=== PATIENT | female | born 1990 | race Caucasian/White ===

== ENCOUNTER 2017-01-15 08:00 | Inpatient (IN) ==
[2017-01-15] MEDS ORDERED: Metoclopramide 10 MG/2 ML VIAL IVP PRN (08:35)
[2017-01-15] MEDS ORDERED: Ondansetron 4 MG/2 ML VIAL IVP PRN ×2 (08:35→16:51)
[2017-01-15] MEDS ORDERED: Naloxone 0.4 MG/ML INJ IVP PRN (08:35)
[2017-01-15] MEDS ORDERED: Famotidine 20 MG/2 ML VIAL IVP PRN (08:35)
[2017-01-15 08:51] LABS: Basophils % 0.4 %; Eosinophils # 0.1 K/mcL (0.0-0.6); Hematocrit 37.7 % (35.3-44.9); Hemoglobin 13.2 g/dL (11.5-15.4); Immature Platelets 2.8 % (1.1-6.1); Lymphocytes % 25.7 %; Mean Corpuscular Hemoglobin 30.3 pg (28.0-33.3); Mean Corpuscular Volume 86.7 fL (83.0-100.0); Mean Platelet Volume 9.4 fL (9.4-12.4); Monocytes # 0.7 K/mcL (0.0-1.3); Monocytes % 8.6 %; Neutrophils # 4.9 K/mcL (1.6-8.9); Platelet Count 284 K/mcL (140-400); Red Blood Count 4.35 M/mcL (3.82-4.97); Red Cell Distribution Width 12.8 % (11.5-14.5); Segmented Neutrophils % 63.3 %
[2017-01-15] MEDS ORDERED: Oxytocin 20 units/ LR 1000 mL 20 UNIT/1,000 ML BAG IVC SCH ×2 (09:00→18:37)
[2017-01-15] MEDS: Ringers Solution, Lactated 1,000 ML IVC SCH ×2 (09:05→15:33)
--- NOTE | 2017-01-15 11:04 | Anesthesia Evaluation PreOp ---
Date of Encounter: 01/15/17 Time of Encounter: 10:50 - Past History Planned Operation: BRIAN Cardiac History: Denies any Significant Hx Pulmonary History: Denies Any Significant HX ABSTRACTER History: Denies Any Significant HX Other Medical History: Denies Any Significant HX Anesthesia History: No Prior Anesthetic Complications (Left retinal detachment repair), Past Anesthesia : Yes Alcohol Use: none Drug use: none - Meds/Allergy Pre-op Review Medications Reviewed: Yes Allergies Reviewed: Yes (PCN) Beta Blockers on Current Med List: No Anesthesia Results - Labs 01/15/17 08:35 Anesthesia Exam BP 122/83 P 80 R 18 T98.7 Height: 5'6" Weight: 75kg NPO (# of Hours): 3hrs solids, water 1hr Pain Scale: 2 Pain Scale Used: Numeric (1 - 10) - HEENT Pupil (Motor): Pupils equal Mallampati: I Teeth: Normal Oral Opening: Greater than 3 - ABSTRACTER ABSTRACTER Motor: Normal RUE, Normal LUE, Normal RLE, Normal LLE, Normal Face ABSTRACTER Sensory: Normal: RUE, LUE, RLE, LLE, Face - Cardiac Rhythm: Regular Murmur: None JVD: No Carotid Bruit: No - Pulmonary Breath Sounds: bilateral Clear Respiratory Effort: Symmetrical Anesthesia Assess/Plan ASA Score: 2 Modified [place] Scale for Level of Consciousness: Cooperative, oriented, and tranquil Anesthetic Plan: Regional Autologous Blood: No Monitoring Plan: Standard Monitors Recovery Plan: Other
--- NOTE | 2017-01-15 12:33 | OB/GYN History & Physical ---
Date of Encounter: 01/15/17 Time of Encounter: 12:31 Assessment and Plan (1) Postmaturity , 40-42 weeks gestation Current visit: Yes Status: Acute Induction of labor with pitocin. Informed consent obtained in the office. (2) History of hemorrhage, currently in third trimester Current visit: Yes Status: Acute Uterotonics will be at bedside at time of delivery. History of Present Illness Chief complaint: Induction of labor post dates HPI: Ms. De Souza is a 26 year old female G2 P 1-0-0-1 at 40 4/7 weeks presents for induction of labor post dates. She denies any regular contractions, vaginal bleeding, or leaking fluid. She reports good movement. Her has been uncomplicated. Past Med Surg Social Fam HX - Past Medical History Source: patient Medical history: no medical history Psychiatric history: no psych history - Past Surgical History Surgical History: no surgical history (eye surgery) - Social History Smoking Status: Never smoker Smokeless Tobacco Status: No Alcohol use: none Drug use: none Obstetrical History - Pregnancies : 2 Para: 1 Term: 1 Livin Medications and Allergies Pnv95/Ferrous Fumarate/FA [ Vitamin Tablet] 1 each PO 01/15/17 [History] Review of System OB All systems PM: reviewed and no additional remarkable complaints except as stated Exam - Constitutional Constitutional: well developed, well nourished, no acute distress, average body habitus - HEENT HEENT: EOMI - Lungs Respiratory exam: CTAB - Cardiovascular Cardiovascular exam: RRR - Abdomen Abdomen: Present: bowel sounds normal, gravid, non tender - Vagina Vagina: Present: normal moisture - Cervix Dilation: 3 Effacement: 80 Station: -2 Results Result Diagrams: 01/15/17 08:35 All other labs normal. - VTE Reasons for not Prescribing Prophylaxis: Treatment not Indicated - Low risk for VTE
--- NOTE | 2017-01-15 14:00 | OB Labor Progress Note ---
Date of Encounter: 01/15/17 Time of Encounter: 13:58 Labor Progress Note - Subjective Subjective: Patient in bed. Contractions are well tolerated by patient - Vital Signs Vital Signs: VSS - Cervix Cervix: 3/80/-2 midposition soft - Heart Tones Heart Tones: 120 with moderate variability 15 x15 accels and no decels - [place]: Contractions every 2-3 minutes 45-60 seconds in length - Interventions Interventions: AROM for small amount of clear fluid. Patient and fetus tolerated well. - Plan Plan: Continue routine labor management Patient may have nubain if requested Patient may have epidural if requested Patient is GBS negative Consider internal monitors if no change in cervical dilation in next 4 hours Anticipate vaginal delivery POC per consult with Dr López.
[2017-01-15] MEDS ORDERED: Bupivacaine-MPF 0.25% 10 ML VIAL ONE (15:39)
[2017-01-15] MEDS ORDERED: *HR* FentaNYL (PF) 100 MCG/2 ML VIAL ONE (15:39)
[2017-01-15] MEDS ORDERED: Epidural Premix (fent/bupiv) 110 ML EP ONE (15:40)
[2017-01-15] MEDS ORDERED: Bupivacaine-MPF 0.25% 10 ML VIAL EP ONE (16:51)
[2017-01-15] MEDS ORDERED: *HR* FentaNYL (PF) 100 MCG/2 ML VIAL EP ONE (16:51)
[2017-01-15] MEDS ORDERED: EPHEDrine 50 MG/ML VIAL IVP PRN (16:51)
--- NOTE | 2017-01-15 16:57 | Anesthesia Procedures ---
Date of Encounter: 01/15/17 Time of Encounter: 15:43 Procedures: Anesthesia - Epidural/Spinal Patient ID/Chart reviewed: Yes Patient examined: Yes OB Eval: Gestational age: 39 OB Eval: : 1 OB Eval: Hx Para: 0 OB Eval: Dilated at (cm): 4 OB Eval: Contractions: Non-stressed pattern Consent Obtained: Yes Supplemental Oxygen: None/Room Air Site Prep: Aseptic Technique, Sterile prep and drape, Povidone-Iodine 1% Patient position: upright Local Anesthetic: Lidocaine 1% Amount of Local Anesthetic used: 3 Touhy Needle Gauge: 18 Touhy Needle Depth (cm): 5 Catheter Depth at Skin (cm): 13 Test Dose (1.5% Lido + Epi): Volume given (mls): 3 Test Dose Result: Negative Loading Dose: 0.25% Marcaine (mls): 8 Loading Dose: Fentanyl (mcg): 100 Loading Dose Administered: Thru Catheter Infusion Med: 0.125% Bupivacaine w/ 2 mcg/ml Fentanyl Catheter Secured in Place: Tegaderm, Tape Interspace Used: L4-L5 Loss of Resistance (BLAIR): Yes Blood: No CSF: No Paresthesia: No Procedure: BRIAN placed in upright position 1st pass without any immediate noted complications. VSS and FHT stable throughout. Vitals + FHT's: 1543 BP 130/78 P 65 R 18 1608 BP 126/74 R 16 P 97 FHT 150s
[2017-01-15] MEDS ORDERED: Epidural Premix (fent/bupiv) 110 ML EP SCH (17:00)
[2017-01-15] MEDS ORDERED: miSOPROStol 100 MCG TABLET RC STA (18:20)
--- NOTE | 2017-01-15 18:26 | OB/GYN Procedure Note ---
Delivery - Delivery Date: 01/15/17 Provider: Suzy López Intrapartum events: none Delivery induction: oxytocin Delivery augmentation: rupture of membranes Delivery monitor: external FHT, external uterine Anesthesia: epidural Estimated Blood Loss: 400 - Infant (s) A Delivery Date: 01/15/17 Infant Delivery Time: 17:43 Presentation: vertex Position: BALA Route of delivery: Gender: Female Viability: Viable at 1 minute: 8 at 5 mins: 9 Shoulder Dystocia: not encountered Specimens collected: cord blood Placenta: spontaneous Cord: 3 umbilical vessels - Repair Episiotomy: none Laceration Description: Perineal - 1st Degree - Complications Delivery complications: none Delivery comments: Called to room with patient complete and +2 station. Under maternal effort she delivered a viable female weighing pending and Apgars 8 and 9 at one and 5 minutes respectively over a first-degree perineal laceration. Following delivery of the head the infant was bulb suctioned. There was no nuchal cord or shoulder dystocia encountered. The was placed on mom's abdomen. Cord was allowed to cease pulsations prior to clamping and cutting. Cord blood was collected. First-degree perineal laceration was repaired using 0 Vicryl in standard fashion. Placenta delivered spontaneously, complete, and intact with a three-vessel cord. Mother and infant are recovering in the LDR in stable condition. Following delivery she began having uterine atony. With her history of prior hemorrhage 1000 mcg misoprostol was placed rectally. EBL with delivery and 400 ml. - Disposition Mom disposition: stable in LDR disposition: stable in LDR
[2017-01-15] MEDS ORDERED: Oxytocin 20 units/ LR 1000 mL 20 UNIT/1,000 ML BAG IVC ONE (18:37)
[2017-01-15] MEDS ORDERED: Acetaminophen 325 MG TABLET PO PRN (18:37)
[2017-01-15] MEDS: Ibuprofen 600 MG TABLET PO PRN (21:00)
[2017-01-16] MEDS: Ibuprofen 600 MG TABLET PO PRN ×2 (03:58→13:13)
[2017-01-16 04:07] LABS: Basophils % 0.3 %; Eosinophils # 0.1 K/mcL (0.0-0.6); Eosinophils % 0.8 %; Hematocrit 33.7 % (35.3-44.9); Immature Granulocytes % 0.7 % (0-4); Lymphocytes # 2.3 K/mcL (0.6-4.6); Lymphocytes % 19.8 %; Mean Corpuscular HGB Conc 34.4 g/dL (31.6-35.5); Mean Corpuscular Hemoglobin 30.6 pg (28.0-33.3); Mean Corpuscular Volume 88.9 fL (83.0-100.0); Mean Platelet Volume 9.6 fL (9.4-12.4); Monocytes % 8.7 %; Platelet Count 208 K/mcL (140-400); Red Blood Count 3.79 M/mcL (3.82-4.97); Red Cell Distribution Width 12.8 % (11.5-14.5); Segmented Neutrophils % 69.7 %
[2017-01-16 04:09] LABS: Hemoglobin 11.6 g/dL (11.5-15.4)
[2017-01-16] MEDS ORDERED: Prenatal Vit/FA 1 EACH TABLET PO SCH (09:00)
--- NOTE | 2017-01-16 09:10 | Discharge Summary ---
Date of Encounter: 01/16/17 Time of Encounter: 09:08 - Discharge Diagnosis (1) Vaginal delivery Priority: Primary Status: Acute Comments: Continue routine care discharge home today follow up with Dr. López in 4-6 weeks (2) Breast feeding status of mother Priority: Secondary Status: Acute Comments: support prn - Discharge Medications Prescriptions: Ibuprofen [Motrin] 600 mg PO Q6HR PRN #60 tablet PRN Reason: Cramping Breast Pump [BREAST PUMP] 1 each .ROUTE AD #1 each Home Medications: Pnv95/Ferrous Fumarate/FA [ Vitamin Tablet] 1 each PO 01/15/17 [History] Breast Pump [BREAST PUMP] 1 each .ROUTE AD #1 each 01/16/17 [Rx] Ibuprofen [Motrin] 600 mg PO Q6HR PRN #60 tablet 01/16/17 [Rx] Vit/FA 1 each PO DAILY tablet 01/16/17 [Rx] Allergies/Adverse Reactions: Allergies Penicillins Allergy (Verified 01/15/17 15:34) Hives Data Procedures and tests throughout hospitalization: Laboratory Tests 01/15/17 01/15/17 01/16/17 08:35 18:27 03:41 WBC 7.8 11.5 H RBC 4.35 3.79 L Hgb 13.2 11.6 D Hct 37.7 33.7 L MCV 86.7 88.9 MCH 30.3 30.6 MCHC 35.0 34.4 RDW 12.8 12.8 Plt Count 284 208 MPV 9.4 9.6 Immature Gran % 1.0 0.7 Seg Neutrophils % 63.3 69.7 Lymphocytes % 25.7 19.8 Monocytes % 8.6 8.7 Eosinophils % 1.0 0.8 Basophils % 0.4 0.3 Neutrophils # 4.9 8.0 Lymphocytes # 2.0 2.3 Monocytes # 0.7 1.0 Eosinophils # 0.1 0.1 Basophils # 0.0 0.0 Immature Plt Fraction 2.8 Baby's Blood Type O RH NEGATIVE Mother's Blood Type O RH NEGATIVE Rhogam Indicated NO Labs on day of discharge: Labs from last 24 hours 01/16/17 01/15/17 03:41 18:27 WBC 11.5 H RBC 3.79 L Hgb 11.6 D Hct 33.7 L MCV 88.9 MCH 30.6 MCHC 34.4 RDW 12.8 Plt Count 208 MPV 9.6 Immature Gran % 0.7 Seg Neutrophils % 69.7 Lymphocytes % 19.8 Monocytes % 8.7 Eosinophils % 0.8 Basophils % 0.3 Neutrophils # 8.0 Lymphocytes # 2.3 Monocytes # 1.0 Eosinophils # 0.1 Basophils # 0.0 Baby's Blood Type O RH NEGATIVE Mother's Blood Type O RH NEGATIVE Rhogam Indicated NO Date of admission: 01/15/17 08:16 Primary care physician: Elissa Lu CNP Consults: 01/15/17 18:37 Consult to Senior Buyer Planner [CONS] Routine Comment: Vaginal delivery, consult needed Discharging clinician: Holly Avalos Anticipated date of discharge: 01/16/17 - Patient Status Disposition: Home, Self-Care Condition: Good Functional capacity at discharge: independent ambulation - Discharge Instructions Follow Up With: Elissa Lu CNP [Primary Care Provider] - Suzy López DO [Partnered Physician] - - Diet and Activity Activity: increase activity as tolerated Diet: regular diet Hospital Course Reason for admission: induction of labor Delivery: Episiotomy: none Other procedures: none complications: uterine atony Discharge diagnosis: IUP at term delivered [place] baby: female (breast feeding) Time Attestation: Total time spent providing and/or coordinating discharge services: Time Spent: Less than 30 minutes Exam - Constitutional Vitals: Temp Pulse Resp BP Pulse Ox 98.5 F 54 20 135/81 98 01/16/17 04:00 01/16/17 04:00 01/16/17 04:00 01/16/17 04:00 01/16/17 04:00 General appearance IM: A&O X 3, pleasant, answers questions appropriately - Respiratory Respiratory exam: Present: CTAB - Cardiovascular Cardiovascular exam IM: Present: RRR, +S1, +S2 - GI/Abdominal GI/Abdominal exam IM: normal bowel sounds - Uterine Tone: Firm Uterus Position: 1 Finger Below Umbilicus, Midline - Extremities Exam Extremities exam IM: Present: full ROM, normal capillary refill, normal inspection - Neurological Exam Neurological exam: alert, oriented X3, reflexes normal
[2017-01-16 10:14] VITALS: BP 127/77
[2017-01-16] MEDS ORDERED: Benzocaine/Menthol 56 GM AEROSOL SPRAY TP PRN (16:58)
== END 2017-01-16 18:36 | disposition home or self-care (01) | DRG 775 ==
LOC: 1NENULAB 08:16 → 1NENUOBS 20:55
PROVIDERS: ADMIT Obstetrics & Gynecology; ATTEND Obstetrics & Gynecology